=== PATIENT | male | born 1980 | race Caucasian/White ===

== ENCOUNTER 2023-08-18 08:50 | Emergency (ER) | payer MEDICAID ==
[~2023-08-18] VITALS: Ht 182.9 cm; Wt 91.0 kg
[2023-08-18 09:11] VITALS: O2SAT 96
[2023-08-18] MEDS ORDERED: NAPR-681 MT (11:29)
[2023-08-18] MEDS ORDERED: CIPR2.5D17 EACHEYE (11:29)
[2023-08-18] MEDS ORDERED: D-ME473S50 PO (11:29)
[2023-08-18] MEDS ORDERED: CEPH500C2 MT (11:29)
[2023-08-18] MEDS ORDERED: SULF1TAB48 MT (11:30)
[2023-08-18 12:03] VITALS: BP 142/83; PULSE 58; RESP 18; TEMP 97.9
== END 2023-08-18 12:04 | disposition home or self-care (01) ==
LOC: ER 08:50
DX: H01.00B Unspecified blepharitis left eye, upper and lower eyelids (principal); H01.00A Unspecified blepharitis right eye, upper and lower eyelids; J39.9 Disease of upper respiratory tract, unspecified
CPT/HCPCS: 99283

== ENCOUNTER 2024-09-15 16:09 | Emergency (ER) | payer MEDICAID ==
[~2024-09-15] VITALS: Ht 172.7 cm; Wt 90.7 kg
[~2024-09-15 16:09] MED LIST: CEPH500C2 MT; CIPR2.5D17 EACHEYE; D-ME473S50 PO; NAPR-681 MT; SULF1TAB48 MT
[2024-09-15 16:15] VITALS: O2SAT 97
[2024-09-15 16:21] VITALS: BP 138/89; PULSE 72; RESP 16; TEMP 36.7; O2SAT 99
[2024-09-15] MEDS ORDERED: IBUP-2030 MT (18:05)
== END 2024-09-15 18:12 | disposition home or self-care (01) ==
LOC: ER 16:09
DX: M25.572 Pain in left ankle and joints of left foot (principal)
CPT/HCPCS: 73610; 99283

== ENCOUNTER 2024-10-31 01:41 | Emergency (ER) | payer MEDICAID ==
[~2024-10-31] VITALS: Ht 172.7 cm; Wt 91.0 kg
[~2024-10-31 01:41] MED LIST changes: +IBUP-2030 MT
[2024-10-31 01:48] VITALS: O2SAT 98
[2024-10-31] MEDS ORDERED: CETI-341 PO (02:07)
[2024-10-31] MEDS ORDERED: OXYM30SP26 BOTHNSTRLS (02:08)
[2024-10-31 02:26] VITALS: BP 116/78; PULSE 67; RESP 16; TEMP 36.7; O2SAT 98
== END 2024-10-31 07:56 | disposition home or self-care (01) ==
LOC: ER 02:00
DX: H57.89 Other specified disorders of eye and adnexa (principal); J34.89 Other specified disorders of nose and nasal sinuses; R06.7 Sneezing
CPT/HCPCS: 99282

== ENCOUNTER 2024-11-25 02:34 | Emergency (ER) | payer MEDICAID ==
[~2024-11-25] VITALS: Ht 172.7 cm; Wt 96.7 kg
[~2024-11-25 02:34] MED LIST changes: +CETI-341 PO; +OXYM30SP26 BOTHNSTRLS
[2024-11-25 02:38] VITALS: O2SAT 98
[2024-11-25 02:59] VITALS: BP 126/83; PULSE 71; RESP 18; TEMP 36.6; O2SAT 97
[2024-11-25] MEDS ORDERED: DEBROX EACH EAR (03:57)
== END 2024-11-25 04:05 | disposition home or self-care (01) ==
LOC: ER 02:34
DX: H61.23 Impacted cerumen, bilateral (principal)
CPT/HCPCS: 99282

== ENCOUNTER 2024-11-29 02:11 | Emergency (ER) | payer MEDICAID ==
[~2024-11-29] VITALS: Ht 172.7 cm; Wt 91.0 kg
[~2024-11-29 02:11] MED LIST changes: +DEBROX EACH EAR
[2024-11-29 02:21] VITALS: O2SAT 98
[2024-11-29 02:24] VITALS: BP 146/71; PULSE 66; RESP 18; TEMP 36.6; O2SAT 98
[2024-11-29] MEDS ORDERED: AMOX-494 MT (06:26)
== END 2024-11-29 06:35 | disposition left against medical advice (07) ==
LOC: ER 02:11
DX: H61.23 Impacted cerumen, bilateral (principal); H66.91 Otitis media, unspecified, right ear; Z79.899 Other long term (current) drug therapy; Z98.890 Other specified postprocedural states
CPT/HCPCS: 99283